=== PATIENT | female | born 1945 | race Two or more races ===

== ENCOUNTER 2017-12-05 08:27 | Emergency (ER) | payer MEDICARE, OTHER ==
[~2017-12-05] VITALS: Ht 170.2 cm; Wt 59.0 kg
[~2017-12-05 08:27] MED LIST: ASPI81CH PO; ASPI81EC PO; CYCL10 PO; DIPH50 PO; HYDACE5325 PO; HYDR1TAB94 PO; IBUP600 PO; MULVITMIND PO; Prilosec Otc20 MG PO; ROXICODONE5 MG PO; TETR.05OPS BOTHEYES
[2017-12-05 10:10] LABS: BASOPHILS ABSOLUTE AUTO 0.04 K/mm3 (0.00-0.23); BASOPHILS PERCENT AUTO 0 % (0-2); EOSINOPHILS PERCENT AUTO 1 % (0-6); Hemoglobin 12.6 g/dL (11.5-16.0); IMMATURE GRAN ABSOLUTE AUTO 0.18 K/mm3 (0.00-0.10); IMMATURE GRAN PERCENT AUTO 1 % (0-1); LYMPHOCYTES ABSOLUTE AUTO 1.01 K/mm3 (0.84-5.20); LYMPHOCYTES PERCENT AUTO 5 % (21-46); MONOCYTES ABSOLUTE AUTO 1.05 K/mm3 (0.16-1.47); MONOCYTES PERCENT AUTO 6 % (4-13); Mean Corpuscular HGB 31.6 pg (26.0-34.0); Mean Corpuscular HGB Conc 33.2 g/dL (31.5-36.5); Mean Corpuscular Volume 95 fL (80-100); Mean Platelet Volume 10.1 fL (9.1-12.4); NEUTROPHILS ABSOLUTE AUTO 16.84 K/mm3 (1.96-9.15); NEUTROPHILS PERCENT AUTO 88 % (41-73); Platelet Count 263 K/mm3 (150-400); RDW Coefficient Variation 13.3 % (11.7-14.2); RDW Standard Deviation 46.9 fL (35.1-46.3); Red Blood Cell Count 3.99 M/mm3 (3.80-5.20); White Blood Cell Count 19.22 K/mm3 (4.00-11.30)
[2017-12-05 10:27] LABS: Alanine Aminotransfer (ALT/SGP 39 U/L (12-78); Albumin, Blood 3.3 g/dL (3.4-5.0); Albumin/Globulin Ratio 0.9 (0.8-1.8); Alk Phos 72 U/L (50-136); Anion Gap 8 mmol/L (6-16); Aspartate Aminotrans (AST/SGOT 47 U/L (12-37); Bilirubin, Total 0.2 mg/dL (0.1-1.0); Blood Urea Nitrogen 15 mg/dL (8-24); Bun/Creatinine Ratio 19.8 (12.0-20.0); CO2, Blood 27 mmol/L (21-32); Calcium, Blood 8.3 mg/dL (8.5-10.1); Chloride, Blood 107 mmol/L (98-108); Creatinine, Blood 0.76 mg/dL (0.40-1.00); Globulin, Blood 3.6 g/dL (2.2-4.0); Glomerular Filtration Rate >60 (60-); Glucose, Blood 82 mg/dL (70-99); Potassium, Blood 4.2 mmol/L (3.5-5.5); Sodium, Blood 142 mmol/L (136-145); Total Protein, Blood 6.9 g/dL (6.4-8.2)
[2017-12-05 10:29] LABS: International Normalized Ratio 0.96
== END 2017-12-05 12:00 | disposition home or self-care (01) ==
LOC: ER 08:27
PROVIDERS: Internal Medicine
DX: R10.816 Epigastric abdominal tenderness (principal)
CPT/HCPCS: 80053; 85025; 85610; 96360; 99283; J7030

== ENCOUNTER 2017-12-13 15:24 | Emergency (ER) | payer MEDICARE ==
[~2017-12-13] VITALS: Ht 172.7 cm; Wt 56.7 kg
[2017-12-13 15:47] LABS: BASOPHILS ABSOLUTE AUTO 0.03 K/mm3 (0.00-0.23); BASOPHILS PERCENT AUTO 1 % (0-2); EOSINOPHILS ABSOLUTE AUTO 0.17 K/mm3 (0.00-0.68); EOSINOPHILS PERCENT AUTO 3 % (0-6); Hemoglobin 13.7 g/dL (11.5-16.0); IMMATURE GRAN ABSOLUTE AUTO 0.01 K/mm3 (0.00-0.10); IMMATURE GRAN PERCENT AUTO 0 % (0-1); LYMPHOCYTES ABSOLUTE AUTO 1.28 K/mm3 (0.84-5.20); LYMPHOCYTES PERCENT AUTO 26 % (21-46); MONOCYTES ABSOLUTE AUTO 0.38 K/mm3 (0.16-1.47); MONOCYTES PERCENT AUTO 8 % (4-13); Mean Corpuscular HGB 31.1 pg (26.0-34.0); Mean Corpuscular HGB Conc 34.3 g/dL (31.5-36.5); Mean Platelet Volume 9.9 fL (9.1-12.4); NEUTROPHILS ABSOLUTE AUTO 3.14 K/mm3 (1.96-9.15); NEUTROPHILS PERCENT AUTO 63 % (41-73); Platelet Count 261 K/mm3 (150-400); RDW Coefficient Variation 13.3 % (11.7-14.2); Red Blood Cell Count 4.41 M/mm3 (3.80-5.20); White Blood Cell Count 5.01 K/mm3 (4.00-11.30)
[2017-12-13 15:50] LABS: Mean Corpuscular Volume 91 fL (80-100)
[2017-12-13 16:04] LABS: Alanine Aminotransfer (ALT/SGP 25 U/L (12-78); Albumin, Blood 3.6 g/dL (3.4-5.0); Albumin/Globulin Ratio 0.8 (0.8-1.8); Alk Phos 66 U/L (50-136); Anion Gap 8 mmol/L (6-16); Aspartate Aminotrans (AST/SGOT 24 U/L (12-37); Bilirubin, Total 0.4 mg/dL (0.1-1.0); Blood Urea Nitrogen 12 mg/dL (8-24); Bun/Creatinine Ratio 19.5 (12.0-20.0); CO2, Blood 22 mmol/L (21-32); Calcium, Blood 9.3 mg/dL (8.5-10.1); Chloride, Blood 106 mmol/L (98-108); Creatinine, Blood 0.61 mg/dL (0.40-1.00); Globulin, Blood 4.3 g/dL (2.2-4.0); Glomerular Filtration Rate >60 (60-); Glucose, Blood 126 mg/dL (70-99); Sodium, Blood 136 mmol/L (136-145); Total Protein, Blood 7.9 g/dL (6.4-8.2)
[2017-12-13 18:32] LABS: Source, Urine Clean Catch
[2017-12-13 18:33] LABS: Bilirubin, Urine Neg (Neg); Blood, Urine 2+ (Neg); Glucose Qualitative, Urine Neg (Neg); Ketones, Urine Neg (Neg); Leukocyte Esterase, Urine 1+ (Neg); Nitrite, Urine Neg (Neg); Protein, Urine Neg (Neg); Specific Gravity, Urine 1.015 (1.003-1.022); Urobilinogen, Urine NORM (Normal)
[2017-12-13 18:41] LABS: Color, Urine Yellow (P-Yellow)
[2017-12-13 18:42] LABS: Appearance, Urine Clear (Clear)
[2017-12-13 18:43] LABS: Bacteria Not Seen /hpf; Red Blood Cells, Urine Not Seen /hpf (0-2); Squamous Epithelial Cells Few /hpf (Few); White Blood Cells, Urine Not Seen /hpf (0-5)
== END 2017-12-13 18:45 | disposition left against medical advice (07) ==
LOC: ER 15:24
PROVIDERS: Emergency Medicine
DX: R10.2 Pelvic and perineal pain (principal); F17.210 Nicotine dependence, cigarettes, uncomplicated
CPT/HCPCS: 36415; 80053; 81001; 83690; 85025; 87086; 96374; 96375; 99283; J1200; J1885; J2765

== ENCOUNTER 2020-01-04 10:41 | Day surgery (SDC) | payer MEDICARE, OTHER ==
[~2020-01-04 10:41] MED LIST changes: +ALBU90OI INH; +CENTRUM SILVER1 EAC2 PO
== END 2020-01-04 23:01 | disposition home or self-care (01) ==
LOC: US 10:41
DX: D11.9 Benign neoplasm of major salivary gland, unspecified (principal)
CPT/HCPCS: 20206; 76942; 88305

== ENCOUNTER 2021-11-24 15:44 | Emergency (ER) | payer MEDICARE, OTHER ==
[~2021-11-24] VITALS: Ht 172.7 cm; Wt 58.1 kg
[~2021-11-24 15:44] MED LIST changes: +NALOXONE H0.4 MG/1 M IM
[2021-11-24 16:39] LABS: BASOPHILS ABSOLUTE AUTO 0.04 K/mm3 (0.00-0.23); BASOPHILS PERCENT AUTO 0 % (0-2); EOSINOPHILS ABSOLUTE AUTO 0.04 K/mm3 (0.00-0.68); EOSINOPHILS PERCENT AUTO 0 % (0-6); Hematocrit 38.6 % (33.0-51.0); Hemoglobin 12.8 g/dL (11.5-16.0); IMMATURE GRAN ABSOLUTE AUTO 0.12 K/mm3 (0.00-0.10); IMMATURE GRAN PERCENT AUTO 1 % (0-1); LYMPHOCYTES ABSOLUTE AUTO 0.64 K/mm3 (0.84-5.20); LYMPHOCYTES PERCENT AUTO 3 % (21-46); MONOCYTES ABSOLUTE AUTO 0.92 K/mm3 (0.16-1.47); MONOCYTES PERCENT AUTO 5 % (4-13); Mean Corpuscular HGB 29.8 pg (26.0-34.0); Mean Corpuscular HGB Conc 33.2 g/dL (31.5-36.5); Mean Corpuscular Volume 90 fL (80-100); Mean Platelet Volume 10.7 fL (9.1-12.4); NEUTROPHILS ABSOLUTE AUTO 17.74 K/mm3 (1.96-9.15); NEUTROPHILS PERCENT AUTO 91 % (41-73); Platelet Count 246 K/mm3 (150-400); RDW Coefficient Variation 13.6 % (11.7-14.2); RDW Standard Deviation 44.9 fL (35.1-46.3); Red Blood Cell Count 4.29 M/mm3 (3.80-5.20)
[2021-11-24 17:11] LABS: Alanine Aminotransfer (ALT/SGP 25 U/L (12-78); Albumin, Blood 3.2 g/dL (3.4-5.0); Albumin/Globulin Ratio 0.8 (0.8-1.8); Alk Phos 93 U/L (50-136); Anion Gap 10 mmol/L (6-16); Aspartate Aminotrans (AST/SGOT 34 U/L (12-37); Bilirubin, Total 0.4 mg/dL (0.1-1.0); Blood Urea Nitrogen 13 mg/dL (8-24); Bun/Creatinine Ratio 17.5 (12.0-20.0); CO2, Blood 22 mmol/L (21-32); Calcium, Blood 8.4 mg/dL (8.5-10.1); Chloride, Blood 102 mmol/L (98-108); Creatinine, Blood 0.74 mg/dL (0.40-1.00); Globulin, Blood 4.2 g/dL (2.2-4.0); Glomerular Filtration Rate >60 (60-); Glucose, Blood 338 mg/dL (70-99); Potassium, Blood 3.9 mmol/L (3.5-5.5); Sodium, Blood 134 mmol/L (136-145); Total Protein, Blood 7.4 g/dL (6.4-8.2)
[2021-11-24 18:04] LABS: Source, Urine Clean Catch
[2021-11-24 18:18] LABS: Appearance, Urine Hazy (Clear); Bilirubin, Urine Neg (Neg); Blood, Urine 4+ (Neg); Glucose Qualitative, Urine 4+ (Neg); Ketones, Urine Neg (Neg); Leukocyte Esterase, Urine 2+ (Neg); Nitrite, Urine Neg (Neg); Protein, Urine 3+ (Neg); Specific Gravity, Urine 1.015 (1.003-1.022); Urobilinogen, Urine NORM (Normal)
[2021-11-24 18:26] LABS: Color, Urine Pale Yellow (P-Yellow)
[2021-11-24 18:29] LABS: Amorphous Light (0-Heavy)
[2021-11-24 18:30] LABS: Bacteria Many /hpf; Red Blood Cells, Urine 0-2 /hpf (0-2); Squamous Epithelial Cells Mod /hpf (Few)
[2021-11-24 18:31] LABS: Hyaline Casts 0-2 /lpf (0-2); U Amphetamine Screen Not Detected; U Barbituate Screen Not Detected; U Benzodiazapine Screen Not Detected; U Buprenorphine Screen Not Detected; U Cannabinoids Screen Not Detected; U Cocaine Screen Not Detected; U Methadone Screen Not Detected; U Methamphetamine Screen Not Detected; U Opiates Screen DETECTED; U Oxycodone Screen Not Detected; U Phencyclidine Screen Not Detected; U Propoxyphene Screen Not Detected
[2021-11-24] MEDS ORDERED: NARCAN4 M1 (18:55)
== END 2021-11-24 20:00 | disposition home or self-care (01) ==
LOC: ER 15:44
PROVIDERS: Physician Assistant
DX: T40.1X1A Poisoning by heroin, accidental (unintentional), initial encounter (principal); F17.210 Nicotine dependence, cigarettes, uncomplicated; Z91.013 Allergy to seafood; Z91.048 Other nonmedicinal substance allergy status; Z79.899 Other long term (current) drug therapy
CPT/HCPCS: 80053; 81001; 85025; 87086; 99284

== ENCOUNTER → 2022-01-08 | Outpatient (CLI) | payer MEDICARE, OTHER ==
[~2022-01-08] MED LIST changes: +NARCAN4 M1
[2022-01-08 15:34] LABS: Appearance, Urine Clear (Clear); Bilirubin, Urine Neg (Neg); Blood, Urine 2+ (Neg); Glucose Qualitative, Urine Neg (Neg); Ketones, Urine Neg (Neg); Leukocyte Esterase, Urine Neg (Neg); Nitrite, Urine Neg (Neg); Protein, Urine Neg (Neg); Urobilinogen, Urine NORM (Normal)
[2022-01-08 15:40] LABS: Color, Urine Pale Yellow (P-Yellow)
[2022-01-08 15:43] LABS: Bacteria Few /hpf; Squamous Epithelial Cells Few /hpf (Few); White Blood Cells, Urine 0-2 /hpf (0-5)
== END | disposition home or self-care (01) ==
LOC: LAB SHORT 12:00
PROVIDERS: Family Medicine
DX: R31.9 Hematuria, unspecified (principal)
CPT/HCPCS: 81001; 87086

== ENCOUNTER → 2022-04-09 | Outpatient (CLI) | payer MEDICARE, OTHER | END | disposition home or self-care (01) | LOC: LAB SHORT 11:40 | DX: Z09 Encounter for follow-up examination after completed treatment for conditions other than malignant neoplasm (principal); Z86.11 Personal history of tuberculosis | CPT/HCPCS: 88108; 88312 ==

== ENCOUNTER → 2024-01-26 | Outpatient (CLI) | payer OTHER ==
[~2024-01-26] MED LIST changes: +Bentyl10 MG PO
[2024-01-28 12:13] LABS: CALPROTECTIN,FECAL 71 ug/g (<=49)
== END ==
LOC: LAB SHORT 09:44 → LAB 09:44
PROVIDERS: Family Medicine
DX: R10.9 Unspecified abdominal pain (principal); R19.5 Other fecal abnormalities
CPT/HCPCS: 83993

== ENCOUNTER → 2024-09-07 | Outpatient (CLI) | payer OTHER ==
[2024-09-07 16:13] LABS: Hematocrit 38.3 % (33.0-51.0); Mean Corpuscular HGB 30.4 pg (26.0-34.0); Mean Corpuscular HGB Conc 36.6 g/dL (31.5-36.5); Mean Corpuscular Volume 83 fL (80-100); Mean Platelet Volume 11.4 fL (9.1-12.4); Platelet Count 368 K/mm3 (150-400); RDW Coefficient Variation 13.3 % (11.7-14.2); RDW Standard Deviation 40.2 fL (35.1-46.3); White Blood Cell Count 13.41 K/mm3 (4.00-11.30)
[2024-09-07 16:23] LABS: Albumin, Blood 3.6 g/dL (3.4-5.0); Albumin/Globulin Ratio 0.9 (0.8-1.8); Bilirubin, Direct 0.1 mg/dL (0.0-0.3); Bilirubin, Indirect 0.3 mg/dL (0.1-0.7); Bilirubin, Total 0.4 mg/dL (0.1-1.0); Calcium, Blood 9.2 mg/dL (8.5-10.1); Creatinine, Blood 3.22 mg/dL (0.40-1.00); Globulin, Blood 4.2 g/dL (2.2-4.0); Potassium, Blood 3.7 mmol/L (3.5-5.5); Total Protein, Blood 7.8 g/dL (6.4-8.2)
[2024-09-07 16:51] LABS: BAND PERCENT MAN 8 % (0-8); BASOPHILS PERCENT MAN 0 % (0-2); EOSINOPHILS PERCENT MAN 0 % (0-6); LYMPHOCYTES ABSOLUTE MAN 0.93 K/mm3 (0.84-5.20); LYMPHOCYTES PERCENT MAN 7 % (21-46); MONOCYTES ABSOLUTE MAN 1.07 K/mm3 (0.16-1.47); MONOCYTES PERCENT MAN 8 % (4-13); NEUTROPHILS ABSOLUTE MAN 11.39 K/mm3 (1.96-9.15); SEG NEUTROPHILS PERCENT MAN 77 % (41-73); TOTAL CELLS COUNTED 100
== END | disposition home or self-care (01) ==
LOC: LAB SHORT 14:49 → LAB 14:49
PROVIDERS: Nurse Practitioner
DX: E86.0 Dehydration (principal); R10.11 Right upper quadrant pain; R11.2 Nausea with vomiting, unspecified
CPT/HCPCS: 80053; 82248; 83690; 85007; 85027

== ENCOUNTER 2025-04-11 15:48 | Emergency (ER) | payer OTHER ==
[~2025-04-11] VITALS: Ht 170.2 cm; Wt 49.9 kg
[2025-04-11] MEDS ORDERED: Ipratropium Bromide INH 0.02% 0.5 mg/2.5ML Vial INH SCH (16:00)
[2025-04-11] MEDS ORDERED: Albuterol 2.5 MG/3 ML VIAL INH SCH (16:00)
[2025-04-11 17:00] LABS: BASOPHILS ABSOLUTE AUTO 0.03 K/mm3 (0.00-0.23); BASOPHILS PERCENT AUTO 0 % (0-2); EOSINOPHILS ABSOLUTE AUTO 0.62 K/mm3 (0.00-0.68); EOSINOPHILS PERCENT AUTO 8 % (0-6); Hematocrit 35.0 % (33.0-51.0); Hemoglobin 11.4 g/dL (11.5-16.0); IMMATURE GRAN ABSOLUTE AUTO 0.01 K/mm3 (0.00-0.10); IMMATURE GRAN PERCENT AUTO 0 % (0-1); LYMPHOCYTES ABSOLUTE AUTO 1.51 K/mm3 (0.84-5.20); LYMPHOCYTES PERCENT AUTO 19 % (21-46); MONOCYTES ABSOLUTE AUTO 0.71 K/mm3 (0.16-1.47); MONOCYTES PERCENT AUTO 9 % (4-13); Mean Corpuscular HGB Conc 32.6 g/dL (31.5-36.5); Mean Corpuscular Volume 95 fL (80-100); NEUTROPHILS ABSOLUTE AUTO 5.10 K/mm3 (1.96-9.15); NEUTROPHILS PERCENT AUTO 64 % (41-73); NRBC ABSOLUTE 0.00 K/mm3 (0.00-0.02); NRBC Auto 0.0 /100 WBC (0.0-0.2); Platelet Count 311 K/mm3 (150-400); RDW Coefficient Variation 14.3 % (11.7-14.2); RDW Standard Deviation 49.6 fL (35.1-46.3)
[2025-04-11 17:07] LABS: Alanine Aminotransfer (ALT/SGP 20.0 U/L (12-78); Albumin, Blood 3.6 g/dL (3.4-5.0); Albumin/Globulin Ratio 1.0 (0.8-1.8); Anion Gap 5.0 mmol/L (3-11); Aspartate Aminotrans (AST/SGOT 22.0 U/L (12-37); Bilirubin, Total 0.3 mg/dL (0.1-1.0); Blood Urea Nitrogen 17.0 mg/dL (8-24); CO2, Blood 34.0 mmol/L (21-32); Calcium, Blood 9.0 mg/dL (8.5-10.1); Chloride, Blood 98.0 mmol/L (98-108); Creatinine, Blood 0.75 mg/dL (0.40-1.00); Globulin, Blood 3.6 g/dL (2.2-4.0); Glucose, Blood 120.0 mg/dL (70-99); Potassium, Blood 4.8 mmol/L (3.5-5.5); Sodium, Blood 132.0 mmol/L (136-145); Total Protein, Blood 7.2 g/dL (6.4-8.2)
[2025-04-11 20:30] VITALS: BP 133/75
[2025-04-11] MEDS ORDERED: AZIT250 PO (20:53)
[2025-04-11] MEDS ORDERED: PRED20 PO (20:53)
== END 2025-04-11 21:03 | disposition home or self-care (01) ==
LOC: ER 15:48
PROVIDERS: Physician Assistant
DX: J44.1 Chronic obstructive pulmonary disease with (acute) exacerbation (principal); F17.210 Nicotine dependence, cigarettes, uncomplicated; Z91.013 Allergy to seafood; Z91.041 Radiographic dye allergy status; Z59.89 Other problems related to housing and economic circumstances
CPT/HCPCS: 71046; 80053; 85025; 93005; 93010; 96374; 99285-25; J2919

== ENCOUNTER 2025-04-17 14:58 | Observation (INO) | payer OTHER ==
[~2025-04-17] VITALS: Ht 170.2 cm; Wt 49.9 kg
[~2025-04-17 14:58] MED LIST changes: +AZIT250 PO; +PRED20 PO
[2025-04-17 16:06] LABS: BASOPHILS ABSOLUTE AUTO 0.03 K/mm3 (0.00-0.23); BASOPHILS PERCENT AUTO 0 % (0-2); EOSINOPHILS ABSOLUTE AUTO 0.01 K/mm3 (0.00-0.68); EOSINOPHILS PERCENT AUTO 0 % (0-6); Hematocrit 36.9 % (33.0-51.0); Hemoglobin 12.3 g/dL (11.5-16.0); IMMATURE GRAN ABSOLUTE AUTO 0.04 K/mm3 (0.00-0.10); IMMATURE GRAN PERCENT AUTO 0 % (0-1); LYMPHOCYTES ABSOLUTE AUTO 0.75 K/mm3 (0.84-5.20); LYMPHOCYTES PERCENT AUTO 8 % (21-46); MONOCYTES ABSOLUTE AUTO 0.31 K/mm3 (0.16-1.47); MONOCYTES PERCENT AUTO 3 % (4-13); Mean Corpuscular HGB Conc 33.3 g/dL (31.5-36.5); Mean Corpuscular Volume 91 fL (80-100); NEUTROPHILS ABSOLUTE AUTO 8.61 K/mm3 (1.96-9.15); NEUTROPHILS PERCENT AUTO 88 % (41-73); NRBC ABSOLUTE 0.00 K/mm3 (0.00-0.02); NRBC Auto 0.0 /100 WBC (0.0-0.2); Platelet Count 266 K/mm3 (150-400); RDW Coefficient Variation 14.1 % (11.7-14.2); RDW Standard Deviation 47.8 fL (35.1-46.3)
[2025-04-17] MEDS ORDERED: Ipratropium/Albuterol SulF 2.5-0.5MG/3 ML Amp INH ONE (16:15)
[2025-04-17 16:24] LABS: Alanine Aminotransfer (ALT/SGP 27.0 U/L (12-78); Albumin, Blood 3.5 g/dL (3.4-5.0); Albumin/Globulin Ratio 0.9 (0.8-1.8); Anion Gap 7.0 mmol/L (3-11); Aspartate Aminotrans (AST/SGOT 24.0 U/L (12-37); Bilirubin, Total 0.4 mg/dL (0.1-1.0); Blood Urea Nitrogen 16.0 mg/dL (8-24); CO2, Blood 30.0 mmol/L (21-32); Calcium, Blood 8.7 mg/dL (8.5-10.1); Chloride, Blood 99.0 mmol/L (98-108); Creatinine, Blood 0.71 mg/dL (0.40-1.00); Globulin, Blood 3.8 g/dL (2.2-4.0); Glucose, Blood 124.0 mg/dL (70-99); Magnesium, Blood 1.8 mg/dL (1.6-2.4); Potassium, Blood 3.7 mmol/L (3.5-5.5); Sodium, Blood 132.0 mmol/L (136-145); Total Protein, Blood 7.3 g/dL (6.4-8.2)
[2025-04-17 16:31] LABS: Source, Urine Clean Catch
[2025-04-17 16:39] LABS: Bilirubin, Urine Neg (Neg); Glucose Qualitative, Urine Neg (Neg); Ketones, Urine Neg (Neg); Leukocyte Esterase, Urine Neg (Neg); Protein, Urine Neg (Neg); Specific Gravity, Urine 1.010 (1.003-1.022); Urobilinogen, Urine NORM (Normal)
[2025-04-17 16:47] LABS: Color, Urine Pale Yellow (P-Yellow)
[2025-04-17 17:23] LABS: Influenza A, PCR NEGATIVE (NEGATIVE); Influenza B, PCR NEGATIVE (NEGATIVE); Resp Syncytial Virus, PCR NEGATIVE (NEGATIVE); SARS-Cov-2 (COVID-19) PCR, MMC NEGATIVE (NEGATIVE)
[2025-04-17] MEDS ORDERED: CefTRIAXone Sodium 1,000 MG in NS 100 ML IV ONE (19:35)
[2025-04-17] MEDS ORDERED: Doxycycline Hyclate 100 MG in Dextrose 5% 250 ML IV ONE (19:35)
[2025-04-17] MEDS ORDERED: Ondansetron HCl 2 MG / ML 2ML Vial IV PRN (22:45)
[2025-04-17] MEDS ORDERED: NS 1,000 ML IV ONE ×2 (22:45→23:29)
[2025-04-17] MEDS ORDERED: FLU VACC TS2025-26(6MOS UP)/PF 45 MCG/0.5 ML SYRINGE IM ONE (22:50)
[2025-04-17] MEDS ORDERED: Ipratropium/Albuterol SulF 2.5-0.5MG/3 ML Amp INH PRN (22:50)
[2025-04-17] MEDS ORDERED: FentaNYL Citrate 50 MCG/ML 2 ML Injection IV PRN (22:50)
[2025-04-17] MEDS ORDERED: Enoxaparin 40 MG/0.4 ML SYR SC SCH (23:00)
[2025-04-18] MEDS ORDERED: LORazepam 2 MG/ML 1ML Injection IV ONE (02:30)
[2025-04-18 02:38] LABS: Alanine Aminotransfer (ALT/SGP 24.0 U/L (12-78); Albumin, Blood 3.4 g/dL (3.4-5.0); Albumin/Globulin Ratio 1.0 (0.8-1.8); Anion Gap 11.0 mmol/L (3-11); Aspartate Aminotrans (AST/SGOT 15.0 U/L (12-37); Bilirubin, Total 0.4 mg/dL (0.1-1.0); Blood Urea Nitrogen 18.0 mg/dL (8-24); CO2, Blood 27.0 mmol/L (21-32); Calcium, Blood 8.7 mg/dL (8.5-10.1); Chloride, Blood 101.0 mmol/L (98-108); Creatinine, Blood 0.59 mg/dL (0.40-1.00); Globulin, Blood 3.5 g/dL (2.2-4.0); Glucose, Blood 136.0 mg/dL (70-99); Potassium, Blood 3.6 mmol/L (3.5-5.5); Sodium, Blood 135.0 mmol/L (136-145); Total Protein, Blood 6.9 g/dL (6.4-8.2)
[2025-04-18 08:25] VITALS: BP 166/90
[2025-04-18] MEDS ORDERED: PRED20 PO (08:47)
== END 2025-04-18 10:02 | disposition home or self-care (01) ==
LOC: ER 14:58 → MEDS 14:59 → ER 14:59 → ERHOLD 14:59
PROVIDERS: Emergency Medicine; ADMIT Internal Medicine
DX: J44.1 Chronic obstructive pulmonary disease with (acute) exacerbation (principal); J96.01 Acute respiratory failure with hypoxia; K52.9 Noninfective gastroenteritis and colitis, unspecified; R79.89 Other specified abnormal findings of blood chemistry; F17.210 Nicotine dependence, cigarettes, uncomplicated; Z91.013 Allergy to seafood; Z79.52 Long term (current) use of systemic steroids; Z79.899 Other long term (current) drug therapy; Z88.8 Allergy status to other drugs, medicaments and biological substances
CPT/HCPCS: 71045; 74176; 80053; 81003; 83690; 83735; 83880; 84100; 84484; 85025; 87637; 93005; 93010; 96361; 96365; 96366; 96367; 96375; 99285-25; A9270; G0378; J0696; J2060; J2919; J3010; J7030; J7060

== ENCOUNTER → 2025-05-22 | Outpatient (CLI) | payer OTHER ==
[2025-05-22 19:41] LABS: BASOPHILS ABSOLUTE AUTO 0.05 K/mm3 (0.00-0.23); BASOPHILS PERCENT AUTO 1 % (0-2); EOSINOPHILS ABSOLUTE AUTO 0.67 K/mm3 (0.00-0.68); EOSINOPHILS PERCENT AUTO 9 % (0-6); Hematocrit 42.4 % (33.0-51.0); Hemoglobin 14.3 g/dL (11.5-16.0); IMMATURE GRAN ABSOLUTE AUTO 0.02 K/mm3 (0.00-0.10); IMMATURE GRAN PERCENT AUTO 0 % (0-1); LYMPHOCYTES ABSOLUTE AUTO 2.00 K/mm3 (0.84-5.20); LYMPHOCYTES PERCENT AUTO 26 % (21-46); MONOCYTES ABSOLUTE AUTO 0.68 K/mm3 (0.16-1.47); MONOCYTES PERCENT AUTO 9 % (4-13); Mean Corpuscular HGB Conc 33.7 g/dL (31.5-36.5); Mean Corpuscular Volume 91 fL (80-100); NEUTROPHILS ABSOLUTE AUTO 4.39 K/mm3 (1.96-9.15); NEUTROPHILS PERCENT AUTO 56 % (41-73); NRBC ABSOLUTE 0.00 K/mm3 (0.00-0.02); NRBC Auto 0.0 /100 WBC (0.0-0.2); Platelet Count 303 K/mm3 (150-400); RDW Coefficient Variation 14.6 % (11.7-14.2); RDW Standard Deviation 48.6 fL (35.1-46.3)
[2025-05-22 20:11] LABS: Alanine Aminotransfer (ALT/SGP 239 U/L (12-78); Albumin, Blood 3.9 g/dL (3.4-5.0); Albumin/Globulin Ratio 1.2 (0.8-1.8); Anion Gap 10 mmol/L (3-11); Aspartate Aminotrans (AST/SGOT 106 U/L (12-37); Bilirubin, Total 0.5 mg/dL (0.1-1.0); Blood Urea Nitrogen 15 mg/dL (8-24); C-REACTIVE PROTEIN, EXT RANGE <0.290 mg/dL (0.000-0.300); CO2, Blood 25 mmol/L (21-32); Calcium, Blood 9.1 mg/dL (8.5-10.1); Chloride, Blood 106 mmol/L (98-108); Creatinine, Blood 0.62 mg/dL (0.40-1.00); Globulin, Blood 3.3 g/dL (2.2-4.0); Glucose, Blood 88 mg/dL (70-99); Magnesium, Blood 2.1 mg/dL (1.6-2.4); Phosphorus, Blood 3.4 mg/dL (2.5-4.9); Potassium, Blood 3.8 mmol/L (3.5-5.5); Sodium, Blood 137 mmol/L (136-145); Thyroid Stimulating Hormone 1.530 uIU/mL (0.360-4.800); Total Protein, Blood 7.2 g/dL (6.4-8.2)
[2025-05-22 20:35] LABS: Creatinine, Urine Random 87.4 mg/dL (27.00-270.00); Microalb/Creat Ratio UR, Rand 16.819 mg/g (0.000-30.000); Microalbumin, Random Urine 14.7 mg/L (0.000-20.000)
[2025-05-25 17:00] LABS: Ferritin, Serum 83.0 ng/mL (8-252); Total Iron Binding Capacity 390.0 ug/dL (250-450)
== END ==
LOC: LAB 16:10 → LAB SHORT 16:10
PROVIDERS: General Practice
DX: R63.4 Abnormal weight loss (principal); R53.82 Chronic fatigue, unspecified; R73.03 Prediabetes
CPT/HCPCS: 80053; 82043; 82570; 82607; 82728; 82746; 83036; 83540; 83550; 83735; 84100; 84439; 84443; 84481; 85025; 85651; 86140

== ENCOUNTER 2025-06-07 16:38 | Inpatient (IN) | payer OTHER ==
[~2025-06-07] VITALS: Ht 165.1 cm; Wt 62.1 kg
[2025-06-07] VITALS (12 sets, daily range): BP systolic 83–144; BP diastolic 42–59
[2025-06-07 17:04] LABS: pH Blood Venous 7.23 (7.34-7.37)
[2025-06-07 17:12] LABS: BASOPHILS ABSOLUTE AUTO 0.07 K/mm3 (0.00-0.23); BASOPHILS PERCENT AUTO 1 % (0-2); EOSINOPHILS ABSOLUTE AUTO 1.17 K/mm3 (0.00-0.68); EOSINOPHILS PERCENT AUTO 12 % (0-6); Hematocrit 38.2 % (33.0-51.0); Hemoglobin 12.2 g/dL (11.5-16.0); IMMATURE GRAN ABSOLUTE AUTO 0.04 K/mm3 (0.00-0.10); IMMATURE GRAN PERCENT AUTO 0 % (0-1); LYMPHOCYTES ABSOLUTE AUTO 2.97 K/mm3 (0.84-5.20); LYMPHOCYTES PERCENT AUTO 30 % (21-46); MONOCYTES ABSOLUTE AUTO 0.98 K/mm3 (0.16-1.47); MONOCYTES PERCENT AUTO 10 % (4-13); Mean Corpuscular HGB Conc 31.9 g/dL (31.5-36.5); Mean Corpuscular Volume 93 fL (80-100); NEUTROPHILS ABSOLUTE AUTO 4.63 K/mm3 (1.96-9.15); NEUTROPHILS PERCENT AUTO 47 % (41-73); NRBC ABSOLUTE 0.00 K/mm3 (0.00-0.02); NRBC Auto 0.0 /100 WBC (0.0-0.2); Platelet Count 283 K/mm3 (150-400); RDW Coefficient Variation 14.1 % (11.7-14.2); RDW Standard Deviation 48.0 fL (35.1-46.3)
[2025-06-07] MEDS ORDERED: FentaNYL Citrate 50 MCG/ML 2 ML Injection IV ONE (17:15)
[2025-06-07 17:35] LABS: Alanine Aminotransfer (ALT/SGP 156 U/L (12-78); Albumin, Blood 3.6 g/dL (3.4-5.0); Albumin/Globulin Ratio 1.1 (0.8-1.8); Anion Gap 11 mmol/L (3-11); Aspartate Aminotrans (AST/SGOT 114 U/L (12-37); Bilirubin, Total 0.7 mg/dL (0.1-1.0); Blood Urea Nitrogen 20 mg/dL (8-24); CO2, Blood 28 mmol/L (21-32); Calcium, Blood 8.5 mg/dL (8.5-10.1); Chloride, Blood 97 mmol/L (98-108); Creatinine, Blood 0.78 mg/dL (0.40-1.00); Ethanol (Alcohol), Blood, Med <3 mg/dL; Globulin, Blood 3.4 g/dL (2.2-4.0); Glucose, Blood 188 mg/dL (70-99); Potassium, Blood 4.3 mmol/L (3.5-5.5); Sodium, Blood 132 mmol/L (136-145); Total Protein, Blood 7.0 g/dL (6.4-8.2)
[2025-06-07 17:38] LABS: U Amphetamine Screen Not Detected; U Barbiturate Screen Not Detected; U Benzodiazapine Screen Not Detected; U Buprenorphine Screen Not Detected; U Cannabinoids Screen Not Detected; U Cocaine Screen Not Detected; U Methadone Screen Not Detected; U Methamphetamine Screen Not Detected; U Opiates Screen Not Detected; U Oxycodone Screen Not Detected; U Phencyclidine Screen Not Detected
[2025-06-07] MEDS ORDERED: LORazepam 2 MG/ML 1ML Injection IV PRN (18:00)
[2025-06-07] MEDS ORDERED: FentaNYL Citrate 50 MCG/ML 2 ML Injection IV PRN ×2 (18:00→21:00)
[2025-06-07 18:21] LABS: pH Blood Venous 7.34 (7.34-7.37)
[2025-06-07] MEDS ORDERED: Ipratropium/Albuterol SulF 2.5-0.5MG/3 ML Amp INH SCH (18:50)
[2025-06-07] MEDS ORDERED: FLU VACC TS2025(65UP)/MF59C/PF 45 MCG/0.5 ML SYRINGE IM SCH (18:50)
[2025-06-07] MEDS ORDERED: Ondansetron HCl 2 MG / ML 2ML Vial IV PRN (18:50)
[2025-06-07] MEDS ORDERED: NS 1,000 ML IV SCH (18:55)
[2025-06-07] MEDS ORDERED: Albuterol 2.5 MG/3 ML VIAL INH PRN (18:55)
[2025-06-07] MEDS ORDERED: Albuterol 2.5 MG/3 ML VIAL INH ONE (19:00)
[2025-06-07 19:06] LABS: Influenza A, PCR NEGATIVE (NEGATIVE); Influenza B, PCR NEGATIVE (NEGATIVE); Resp Syncytial Virus, PCR NEGATIVE (NEGATIVE); SARS-Cov-2 (COVID-19) PCR, MMC NEGATIVE (NEGATIVE)
[2025-06-07] MEDS ORDERED: NS 1,000 ML IV ONE ×2 (19:07→20:00)
--- NOTE | 2025-06-07 19:43 | NUR ---
ADMIT RECEIVED FROM ER. PT IS INTUBATED- 7.0 ETT, 25CM AT LIP. AC/VC 16/375/5/50%. PROPOFOL AT 10MCG/KG/MIN. PT IS AWAKE AND ALERT. FOLLOWS DIRECTIONS. ATTEMPTS TO TALK/MOUTH WORDS AND POINTS AT THINGS IN AN ATTEMPT TO COMMUNICATE. BP WNL. MONITOR SHOWS NSR, RATE 80s. JENSEN PATENT AND DRAINING TO GRAVITY, YELLOW URINE. NS INFUSING WIDE OPEN AT THIS TIME. LACERATION NOTED TO BRIDGE OF NOSE AND BRUISING NOTED AROUND EYES. SEE ADMIT ASSESSMENT FOR FULL ASSESSMENT.
[2025-06-07] MEDS ORDERED: Cetylpyridinium Chloride 1 EA MISC MT SCH (20:00)
[2025-06-08] VITALS (84 sets, daily range): BP systolic 80–149; BP diastolic 45–76
[2025-06-08] MEDS ORDERED: Hydrogen Peroxide 1.5 % Solution MT SCH
[2025-06-08 03:06] LABS: pH Blood Venous 7.40 (7.34-7.37)
[2025-06-08 03:07] LABS: Hematocrit 34.4 % (33.0-51.0); Hemoglobin 11.3 g/dL (11.5-16.0); Mean Corpuscular HGB Conc 32.8 g/dL (31.5-36.5); Mean Corpuscular Volume 93 fL (80-100); NRBC ABSOLUTE 0.00 K/mm3 (0.00-0.02); NRBC Auto 0.0 /100 WBC (0.0-0.2); Platelet Count 202 K/mm3 (150-400); RDW Coefficient Variation 14.0 % (11.7-14.2); RDW Standard Deviation 47.7 fL (35.1-46.3)
[2025-06-08 03:48] LABS: Alanine Aminotransfer (ALT/SGP 131.0 U/L (12-78); Albumin, Blood 3.0 g/dL (3.4-5.0); Albumin/Globulin Ratio 1.0 (0.8-1.8); Anion Gap 11.0 mmol/L (3-11); Aspartate Aminotrans (AST/SGOT 85.0 U/L (12-37); Bilirubin, Total 0.4 mg/dL (0.1-1.0); Blood Urea Nitrogen 18.0 mg/dL (8-24); CO2, Blood 26.0 mmol/L (21-32); Calcium, Blood 8.2 mg/dL (8.5-10.1); Chloride, Blood 103.0 mmol/L (98-108); Creatinine, Blood 0.65 mg/dL (0.40-1.00); Globulin, Blood 3.0 g/dL (2.2-4.0); Glucose, Blood 147.0 mg/dL (70-99); Potassium, Blood 4.2 mmol/L (3.5-5.5); Sodium, Blood 136.0 mmol/L (136-145); Total Protein, Blood 6.0 g/dL (6.4-8.2)
[2025-06-08] MEDS ORDERED: NS 1,000 ML IV ONE (04:55)
--- NOTE | 2025-06-08 05:56 | NUR ---
SHIFT SUMMARY NO ACUTE CHANGES. REMAINS INTUBATED- AC/VC 16/375/5/30%. SEDATED WITH PROPOFOL BETWEEN 10-30MCG/KG/MIN- NOW INFUSING AT 30MCG/KG/MIN. PT OPENS EYES SPONTANEOUSLY. ATTEMPTS TO MOUTH WORDS AND WRITE ON CLIPBOARD. C/O PAIN IN THROAT FROM ETT- MEDICATED WITH FENTANYL 25MCG IV X 2 DOSES WITH GOOD RELIEF. MEDICATED WITH ATIVAN 0.5MG IV X 2 DOSES FOR SEDATION ADJUNCT. BILATERAL SOFT WRIST RESTRAINTS IN PLACE TO PREVENT SELF-EXTUBATION. MONITOR SHOWS NSR, RATE 70s-80s T/O SHIFT. HYPOTENSIVE AT TIMES. NS INFUSING AT 100MLS/HR. NS 1L BOLUS GIVEN X 1 FOR MAP <65. JENSEN PATENT AND DRAINING TO GRAVITY. WILL REPORT TO ONCOMING RN WHEN AVAILABLE.
--- NOTE | 2025-06-08 07:27 | NUR ---
PT BECAME VERY ANXIOUS WITH UNCONTROLLED COUGHING. RT TO BEDSIDE, PT WAS SUCTIONED, ATIVAN GIVEN, AND DR. NICKERSON CALLED. PER DR. NICKERSON, PT PLACED ON SPONTANEOUS AND SEDATION WAS PLACED ON SB. PT NOW APPEARS TO BE RESTING COMFORTABLY.
--- NOTE | 2025-06-08 07:50 | NUR ---
ASSUMED CARE OF PATIENT AT APPROXIMATELY 0700. REPORT RECEIVED FROM GOMEZ DURHAM. PT INTUBATED AND SEDATED, ON PROPOFOL. CONTINUOUS CARDIAC MONITORING IN PLACE. VENT SETTINGS A/C VC 14/375/5/30%. JENSEN PATENT. SCAB TO BRIDGE OF NOSE VISUALIZED, BILATERAL BLACK EYES, L WORSE THAN R. SEE SHIFT ASSESSMENT FOR FULL DETAILS.
[2025-06-08] MEDS ORDERED: Pantoprazole Sodium 40 MG Injection IV SCH (09:00)
[2025-06-08] MEDS ORDERED: Enoxaparin 40 MG/0.4 ML SYR SC SCH (09:00)
[2025-06-08] MEDS ORDERED: MULVITA PO (15:25)
--- NOTE | 2025-06-08 15:48 | NUR ---
UPPER DENTURES REMOVED FROM PT'S MOUTH, PLACED IN CUP c PATIENT LABEL IN HER ROOM ON COUNTER.
--- NOTE | 2025-06-08 17:03 | NUR ---
SHIFT SUMMARY SINCE EXTUBATION, PT HAS REMAINED ALERT AND ORIENTED X 4. ABLE TO FOLLOW COMMANDS, MAKE PURPOSEFUL MOVEMENTS, AND MAKE NEEDS KNOWN. TMAX 99.9 TEMP CURRENTLY 99.5, FAN UTILIZED. REPORTED PAIN IN HER STOMACH AT 4/10, HEATING PAD UTILIZED. CONTINUOUS CARDIAC MONITORING IN PLACE SHOWS SR, BP STABLE c MAP > 65. ALTERNATING BETWEEN RA AND 2-4 LPM O2 VIA NC c O2 SATURATION > 92%. THICK WHITE SECRETIONS, PT ENCOURAGED TO COUGH. NO PO INTAKE THIS SHIFT D/T PT SOMNOLENCE. NO BM THIS SHIFT. JENSEN PATENT AND DRAINING TO GRAVITY. ABRASION TO NOSE BRIDGE REMAINS UNCHANGED. PIV'S SALINE LOCKED. FAMILY AT BEDSIDE T/O SHIFT, SISTER WHO LIVES OUT OF STATE UPDATED ON PLAN OF CARE. WILL CONTINUE TO MONITOR AND REPORT TO ONCOMING RN.
--- NOTE | 2025-06-08 20:29 | NUR ---
ASSUMPTION OF CARE/ASSESSMENT: ASSUMED CARE OF PT AT 1900; BEDSIDE SHIFT REPORT FROM MARIAH DYER. PT SLEEPING BUT WAKES EASILY TO VERBAL STIMULI. PT IS A&O X 4, BUT UNABLE TO REMEMBER EVENTS LEADING UP TO ADMISSION. PT STATES THAT SHE DOES NOT USE A WHEELCHAIR AT HOME AND IS AMBULATORY. PT TRIALED ON WATER AND JELLO WITH NO PROBLEMS. PT CURRENTLY ON NC @ 2 LPM, WHEEZES TO L SIDE AND COARSE TO RIGHT SIDE; PT RECIEVED BREATHING TX. PT DENIES SOB, COUGH NON-PRODUCTIVE AND CONGESTED. PT SR ON MONITOR WITH HR 90'S, SBP 140'S AND DENIES CHEST PAIN/PRESSURE. ABD SOFT, NON-TENDER. JENSEN PATENT AND DRAINING TO GRAVITY. PIV TO LFA AND LWR THAT ARE PATENT AND SALINE LOCKED. BED LOWERED, CALL LIGHT IN REACH.
[2025-06-09] VITALS (34 sets, daily range): BP systolic 107–151; BP diastolic 49–77
[2025-06-09 03:14] LABS: pH Blood Venous 7.52 (7.34-7.37)
[2025-06-09 03:16] LABS: Hematocrit 31.6 % (33.0-51.0); Hemoglobin 10.8 g/dL (11.5-16.0); Mean Corpuscular HGB Conc 34.2 g/dL (31.5-36.5); Mean Corpuscular Volume 90 fL (80-100); NRBC ABSOLUTE 0.00 K/mm3 (0.00-0.02); NRBC Auto 0.0 /100 WBC (0.0-0.2); Platelet Count 208 K/mm3 (150-400); RDW Coefficient Variation 14.5 % (11.7-14.2); RDW Standard Deviation 46.7 fL (35.1-46.3)
[2025-06-09 03:36] LABS: Albumin, Blood 2.8 g/dL (3.4-5.0); Anion Gap 8 mmol/L (3-11); Blood Urea Nitrogen 15 mg/dL (8-24); CO2, Blood 26 mmol/L (21-32); Calcium, Blood 8.8 mg/dL (8.5-10.1); Chloride, Blood 109 mmol/L (98-108); Creatinine, Blood 0.60 mg/dL (0.40-1.00); Glucose, Blood 100 mg/dL (70-99); Magnesium, Blood 2.0 mg/dL (1.6-2.4); Phosphorus, Blood 2.2 mg/dL (2.5-4.9); Potassium, Blood 3.8 mmol/L (3.5-5.5); Sodium, Blood 139 mmol/L (136-145)
[2025-06-09] MEDS ORDERED: Potassium Phosphate Dibasic 10 MM in Dextrose 5% 250 ML IV ONE (05:30)
--- NOTE | 2025-06-09 05:59 | NUR ---
SHIFT SUMMARY: NO ACUTE CHANGES OVERNIGHT; VSS THROUGHOUT THE SHIFT. PT REMAINS ON NC 1-2 LPM; PRODUCTIVE COUGH WITH THICK, GREEN MUCUS. PT WHEEZY INTERMITTEN, RECIEVING PRN BREATHING TX WITH GOOD EFFECT. PT DENIES SOB. DYSPNEA ON EXERCTION BUT MAINTAINS SPO2. PT HELPING WITH REPOSITIONING, STRENGTH IMPROVING OVER SHIFT. PT UP TO BEDSIDE COMMODE TWICE, STEADY ON FEET. PT HAD ON BM THIS SHIFT. PT ABLE TO USE CALL LIGHT APPROPRIATELY. PT ADVANCED TO REGULAR DIET AND IS ABLE TO TOLERATE PO INTAKE THIS SHIFT. RECEIVING KPHOS THIS MORNING. BED LOWERED, CALL LIGHT IN REACH, WILL REPORT OFF TO ONCOMING RN.
--- NOTE | 2025-06-09 08:58 | NUR ---
DR LINCOLN AT BEDSIDE TO ROUND ON PT. ORDER GIVEN FOR STATUS CHANGE & PAIN MEDICATION.
--- NOTE | 2025-06-09 11:08 | NUR ---
MET WITH PT'S FAMILY YESTERDAY WHILE PT WAS STILL INTUBATED. THE EXPECTATION AT THAT TIME WAS FOR EXTUBATION, WHICH HAS NOW HAPPENED. PT EXPECTED TO MAKE HER OWN DECISIONS. PLAN TO MEET WITH THE PATIENT TODAY WHEN SHE'S AWAKE. APPEARS TO BE RESTING COMFORTABLY WITH EYES CLOSED AT THIS TIME.
--- NOTE | 2025-06-09 11:09 | NUR ---
Spiritual Care Visit. Pt. is awake in bed when she welcomes my visit. Pt. is pleasant. Facilitated a life review and considered matters of rosa and belief. Listen with empahty and interest. Pt. verbalized that she was feeling better and expects to be discharged home for the weekend. Prayed for the Pt. Pt. verbalized gratitude for the spiritual care visit.
[2025-06-09] MEDS ORDERED: TIZA4 PO (12:13)
[2025-06-09] MEDS ORDERED: OXYC5 PO (12:13)
[2025-06-09] MEDS ORDERED: ALBU2.5V5 (12:14)
[2025-06-09] MEDS ORDERED: Voltaren100 GM (12:15)
--- NOTE | 2025-06-09 18:13 | NUR ---
SHIFT SUMMARY S/P ACUTE RESP FAILURE. NO ACUTE CHANGES TODAY. A&O x3, NOT ORIENTED TO DATE S/P SYNCOPAL EVENT @ HOME. HR NSR 70s, MAP >65. SPO2 >91% ON RA. TOLERATING REGULAR DIET, DENIES N/V. PT REPORTS CHRONIC BACK PAIN & ACUTE FACE PAIN R/T FALL, MEDICATED PER EMAR c RELIEF. AMBULATES c NURSE/SBA R/T WEAKNESS. VOIDING, SMALL BMs & PASSING FLATUS. FAMILY CURRENTLY AT BEDSIDE. PT SITTING IN CHAIR, CALL LIGHT IN REACH, WILL REPORT TO DAY RN.
--- NOTE | 2025-06-09 20:01 | NUR ---
ASSUMPTION OF CARE: ASSUMED CARE AT START OF SHIFT (1899). REPORT RECEIVED FROM DAY SHIFT RN. PT IS DOING WELL AND SITTING IN CHAIR. PT'S FAMILY AT BESIDE VISITING WITH PT. PT IS ALERT AND FOLLOWING COMMANDS. PT STATES HAVING 6/10 BACK PAIN, BUT NO CP OR SOB AT THIS TIME. LUNG SOUNDS ARE CLEAR AND EQUAL BILATERALLY, ON RA WITH SPO2 >95%. SINUS RYTHM WITH SBP: 140'S MAP >65 HR: 80'S. IV: PERIPHERAL LAC AND L FOREARM. SKIN: BRUISING AROUND EYES FROM PREVIOUS FALL. PT ABLE TO STAND AND AMBULATE TO TOILET VIA 1-PERSON ASSIST. LINES AND CORDS PLACED OUT OF REACH. CALL LIGHT PLACED WITHIN REACH.
[2025-06-10 03:30] LABS: Anion Gap 7.0 mmol/L (3-11); Blood Urea Nitrogen 13.0 mg/dL (8-24); CO2, Blood 29.0 mmol/L (21-32); Calcium, Blood 8.5 mg/dL (8.5-10.1); Chloride, Blood 107.0 mmol/L (98-108); Creatinine, Blood 0.61 mg/dL (0.40-1.00); Glucose, Blood 105.0 mg/dL (70-99); Phosphorus, Blood 2.6 mg/dL (2.5-4.9); Potassium, Blood 3.3 mmol/L (3.5-5.5); Sodium, Blood 140.0 mmol/L (136-145)
[2025-06-10 04:12] VITALS: BP 143/71
--- NOTE | 2025-06-10 05:46 | NUR ---
SHIFT SUMMARY: PT IS DOING WELL AND RESTING IN BED. NO ACUTE CHANGES THROUGHOUT THE SHIFT. VITAL SIGNS REMAIN STABLE. PT STATED THEY WERE HAVING DIFFICULTY SLEEPING AND PT RECEIVED MELTONIN PER EMR ORDERS. PT ALSO CONTINUES TO HAVE BACK PAIN AND WAS GIVEN PAIN MEDS PER EMR ORDERS. PT ABLE TO AMBULATE TO BATHROOM VIA 1-PERSON ASSIST. LINES AND CORDS PLACED OUT OF REACH. CALL LIGHT PLACED WITHIN REACH. PT ABLE TO MAKES NEEDS KNOWN.
[2025-06-10] MEDS ORDERED: Ondansetron HCl 2 MG / ML 2ML Vial IV PRN (08:00)
[2025-06-10 08:17] VITALS: BP 161/82
[2025-06-10] MEDS ORDERED: PRED20 PO (08:53)
[2025-06-10] MEDS ORDERED: PANT20 PO (08:57)
[2025-06-10] MEDS ORDERED: ALBU90OI INH (08:57)
[2025-06-10] MEDS ORDERED: TIOT18 INH (09:01)
--- NOTE | 2025-06-10 11:40 | NUR ---
DISCHARGE SUMMARY S/P ACUTE RESP FAILURE. VSS, SPO2 >92% ON RA, PT DENIES SOB c EXERTION. TOLERATING ORALS, DENIES N/V UPON DISCHARGE. PT REPORTS BASELINE BACK PAIN & ACUTE FACIAL PAIN, TOLERABLE c ORAL MEDICATION. VOIDING, PASSING FLATUS c BMs. IVs REMOVED. PT ABLE TO IND AMBULATE. ALL PERSONAL BELONGINGS c PT. DISCHARGE INSTRUCTIONS GIVEN, PT VERBALIZES UNDERSTANDING, ALL QUESTIONS ANSWERED. D/C'd VIA WHEELCHAIR TO POV DRIVEN BY FAMILY.
--- NOTE | 2025-06-10 13:45 | NUR ---
PALLIATIVE CARE NOTE: RECIEVED UPDATE FROM PRIMARY RN, PT TO DC TODAY. NO NEEDS FROM PC AT THIS TIME.
== END 2025-06-10 11:40 | disposition home or self-care (01) | DRG 208 ==
LOC: ER 16:38 → ICUE 17:57
PROVIDERS: Emergency Medicine; Internal Medicine; Nurse Practitioner Acute Care; ADMIT Internal Medicine
PROC: 3E03329 Introduction of Other Anti-infective into Peripheral Vein, Percutaneous Approach (ICD-10-PCS; principal; 2025-06-07)
PROC: 5A1935Z Respiratory Ventilation, Less than 24 Consecutive Hours (ICD-10-PCS; 2025-06-07)
PROC: 0BH17EZ Insertion of Endotracheal Airway into Trachea, Via Natural or Artificial Opening (ICD-10-PCS; 2025-06-07)
DX: J96.01 Acute respiratory failure with hypoxia (principal); J44.1 Chronic obstructive pulmonary disease with (acute) exacerbation; R64 Cachexia; Z68.1 Body mass index [BMI] 19.9 or less, adult; J96.02 Acute respiratory failure with hypercapnia; I16.0 Hypertensive urgency; S02.2XXA Fracture of nasal bones, initial encounter for closed fracture; F17.210 Nicotine dependence, cigarettes, uncomplicated; Z79.2 Long term (current) use of antibiotics; Z79.52 Long term (current) use of systemic steroids; Z79.899 Other long term (current) drug therapy; Z91.013 Allergy to seafood; Z91.041 Radiographic dye allergy status; Z98.891 History of uterine scar from previous surgery; Z98.51 Tubal ligation status; Z86.19 Personal history of other infectious and parasitic diseases; Z87.11 Personal history of peptic ulcer disease; W01.198A Fall on same level from slipping, tripping and stumbling with subsequent striking against other object, initial encounter
CPT/HCPCS: 12011; 36415; 51702; 70450; 71045; 72125; 76705; 80048; 80053; 80069; 80320; 82803; 82947; 83605; 83735; 84100; 84484; 85025; 85027; 87637; 93005; 93010; 94002; 94003; 94640; 94664; 94761; 94762; 96374-59; 99285-25; A9270; J0456; J1650; J2060; J2405; J2470; J2704; J2919; J3010; J7030; J7050; J7060; J7512; L0160

== ENCOUNTER 2025-07-15 04:55 | Inpatient (IN) | payer OTHER ==
[~2025-07-15] VITALS: Ht 172.7 cm; Wt 49.9 kg
[2025-07-15] VITALS (10 sets, daily range): BP systolic 109–134; BP diastolic 54–71
[~2025-07-15 04:55] MED LIST changes: +ALBU2.5V5; +MULVITA PO; +OXYC5 PO; +PANT20 PO; +TIZA4 PO; +Voltaren100 GM
[2025-07-15] MEDS ORDERED: NS 1,000 ML IV ONE ×2 (05:09→05:38)
[2025-07-15 05:14] LABS: BASOPHILS ABSOLUTE AUTO 0.08 K/mm3 (0.00-0.23); BASOPHILS PERCENT AUTO 0 % (0-2); EOSINOPHILS ABSOLUTE AUTO 0.02 K/mm3 (0.00-0.68); EOSINOPHILS PERCENT AUTO 0 % (0-6); Hematocrit 41.5 % (33.0-51.0); Hemoglobin 12.8 g/dL (11.5-16.0); IMMATURE GRAN ABSOLUTE AUTO 0.27 K/mm3 (0.00-0.10); IMMATURE GRAN PERCENT AUTO 1 % (0-1); LYMPHOCYTES ABSOLUTE AUTO 7.82 K/mm3 (0.84-5.20); LYMPHOCYTES PERCENT AUTO 31 % (21-46); MONOCYTES ABSOLUTE AUTO 1.36 K/mm3 (0.16-1.47); MONOCYTES PERCENT AUTO 5 % (4-13); Mean Corpuscular HGB Conc 30.8 g/dL (31.5-36.5); Mean Corpuscular Volume 98 fL (80-100); NEUTROPHILS ABSOLUTE AUTO 15.85 K/mm3 (1.96-9.15); NEUTROPHILS PERCENT AUTO 62 % (41-73); NRBC ABSOLUTE 0.00 K/mm3 (0.00-0.02); NRBC Auto 0.0 /100 WBC (0.0-0.2); Platelet Count 297 K/mm3 (150-400); RDW Coefficient Variation 14.6 % (11.7-14.2); RDW Standard Deviation 52.5 fL (35.1-46.3)
[2025-07-15 05:41] LABS: Prothrombin Time Results 11.2 Sec (9.7-11.5)
[2025-07-15 05:49] LABS: Alanine Aminotransfer (ALT/SGP 161.0 U/L (12-78); Albumin, Blood 3.8 g/dL (3.4-5.0); Albumin/Globulin Ratio 1.1 (0.8-1.8); Anion Gap 10.0 mmol/L (3-11); Aspartate Aminotrans (AST/SGOT 63.0 U/L (12-37); Bilirubin, Total 0.4 mg/dL (0.1-1.0); Blood Urea Nitrogen 28.0 mg/dL (8-24); CO2, Blood 27.0 mmol/L (21-32); Calcium, Blood 9.1 mg/dL (8.5-10.1); Chloride, Blood 103.0 mmol/L (98-108); Creatinine, Blood 0.85 mg/dL (0.40-1.00); Globulin, Blood 3.5 g/dL (2.2-4.0); Glucose, Blood 275.0 mg/dL (70-99); Magnesium, Blood 2.6 mg/dL (1.6-2.4); Potassium, Blood 4.7 mmol/L (3.5-5.5); Sodium, Blood 135.0 mmol/L (136-145); Thyroid Stimulating Hormone 7.91 uIU/mL (0.360-4.800); Total Protein, Blood 7.3 g/dL (6.4-8.2)
[2025-07-15] MEDS ORDERED: Piperacillin/Tazobactam Sod 4.5 GM in NS 100 ML IV ONE (05:55)
[2025-07-15] MEDS ORDERED: Ipratropium/Albuterol SulF 2.5-0.5MG/3 ML Amp INH ONE (05:55)
[2025-07-15 06:36] LABS: Source, Urine Clean Catch
[2025-07-15 06:43] LABS: Bilirubin, Urine Neg (Neg); Glucose Qualitative, Urine Neg (Neg); Ketones, Urine Neg (Neg); Leukocyte Esterase, Urine Neg (Neg); Protein, Urine 3+ (Neg); Specific Gravity, Urine 1.020 (1.003-1.022); Urobilinogen, Urine NORM (Normal)
[2025-07-15 06:49] LABS: Color, Urine Yellow (P-Yellow); White Blood Cells, Urine 0-2 /hpf (0-5)
[2025-07-15] MEDS ORDERED: FLU VACC TS2025(65UP)/MF59C/PF 45 MCG/0.5 ML SYRINGE IM SCH (07:40)
[2025-07-15] MEDS ORDERED: Enoxaparin 40 MG/0.4 ML SYR SC SCH (09:00)
--- NOTE | 2025-07-15 09:02 | NUR ---
ASSUMED CARE PT ADMIT FROM ER AT 0902. INTUBATED 22/400/5/45%. AROUSABLE TO VOICE, NODS/SHAKES HEAD APPROPRIATELY, GESTURES WHEN PROMPTED. 2 PIV'S IN R ARM, PATENT AND INFUSING 50MCG/KG/MIN PROPOFOL AND 125MCG/HR FENTANYL. R FEMORAL CENTRAL LINE INFUSING 4 MCG/KG/MIN LEVOPHED. OOZING SOME BLOOD, HOWEVER IT HAS ALREADY BEGUN TO CLOT AND IS STILL PATENT. HR RANGES IN THE 60'S AND BP 90-100'S SYSTOLIC WITH MAP'S >65. AFEBRILE. JENSEN PATENT AND DRAINING TO GRAVITY. SEE ADMIT ASSESSMENT FOR FULL DETAILS.
[2025-07-15 09:57] LABS: pH Blood Venous 7.35 (7.34-7.37)
--- NOTE | 2025-07-15 10:07 | NUR ---
EXTUBATION RT AT BEDSIDE, SEDATION OFF. FOLLOWS COMMANDS, UTILIZES COMMUNICATION BOARD. EXTUBATED AT 1007 TO 3L NC. O2 SAT >90%.
[2025-07-15 15:31] LABS: U Amphetamine Screen Not Detected; U Barbiturate Screen Not Detected; U Benzodiazapine Screen Not Detected; U Buprenorphine Screen Not Detected; U Cannabinoids Screen Not Detected; U Cocaine Screen Not Detected; U Methadone Screen Not Detected; U Methamphetamine Screen Not Detected; U Opiates Screen Not Detected; U Oxycodone Screen Not Detected; U Phencyclidine Screen Not Detected
--- NOTE | 2025-07-15 17:36 | NUR ---
SHIFT SUMMARY PT EXTUBATED AT 1007, CURRENTLY ON RA c O2 SATURATION > 90%. ABLE TO FOLLOW COMMANDS, MAKES PURPOSEFUL MOVEMENTS, AND MAKE NEEDS KNOWN. AFEBRILE. REPORTS CHRONIC BACK PAIN, MEDICATED PER EMAR c GOOD BENEFIT. AMBULATES IN ROOM INDEPENDENTLY c SBA FOR CORD GUIDANCE. CONTINUOUS CARDIAC MONITORING IN PLACE SHOWS SR, BP STABLE. NO BM THIS SHIFT. TOLERATES PO INTAKE AND MEDS WELL. VOIDS INDEPENDENTLY IN BEDSIDE TOILET. CENTRAL LINE TO R FEM, 2X PIV'S TO R ARM SALINE LOCKED. WILL CONTINUE TO MONITOR AND REPORT TO ONCOMING RN.
[2025-07-15] MEDS ORDERED: Rocuronium Bromide 10 MG/ML 5ML Injection IV ONE (18:56)
[2025-07-15] MEDS ORDERED: Midazolam HCl 1MG / ML 2ML Vial IV ONE (18:56)
[2025-07-15] MEDS ORDERED: Phenylephrine HCl 40 MCG/ML-NS 10MLSYR (0.4MG/ML) IV ONE (18:56)
[2025-07-15] MEDS ORDERED: Etomidate 2MG / ML 10ML Vial IV ONE (18:56)
[2025-07-15] MEDS ORDERED: DEXTROMETHORPHAN/BENZOCAINE 1 EACH LOZENGE MT PRN (19:10)
[2025-07-15] MEDS ORDERED: Tiotropium Bromide 2.5 MCG/ACT MIST INHAL (10 ACT/4 GM) INH SCH (23:35)
[2025-07-15] MEDS ORDERED: Albuterol 2.5 MG/3 ML VIAL INH PRN (23:35)
[2025-07-16] VITALS (8 sets, daily range): BP systolic 100–137; BP diastolic 42–80
[2025-07-16 03:41] LABS: Hematocrit 32.7 % (33.0-51.0); Hemoglobin 10.7 g/dL (11.5-16.0); Mean Corpuscular HGB Conc 32.7 g/dL (31.5-36.5); NRBC ABSOLUTE 0.00 K/mm3 (0.00-0.02); NRBC Auto 0.0 /100 WBC (0.0-0.2); Platelet Count 189 K/mm3 (150-400); RDW Coefficient Variation 14.9 % (11.7-14.2); RDW Standard Deviation 50.6 fL (35.1-46.3)
[2025-07-16 03:43] LABS: Mean Corpuscular Volume 93 fL (80-100)
[2025-07-16 04:02] LABS: Anion Gap 8.0 mmol/L (3-11); Blood Urea Nitrogen 22.0 mg/dL (8-24); CO2, Blood 24.0 mmol/L (21-32); Calcium, Blood 8.0 mg/dL (8.5-10.1); Chloride, Blood 107.0 mmol/L (98-108); Creatinine, Blood 0.7 mg/dL (0.40-1.00); Glucose, Blood 185.0 mg/dL (70-99); Potassium, Blood 4.1 mmol/L (3.5-5.5); Sodium, Blood 135.0 mmol/L (136-145)
--- NOTE | 2025-07-16 05:52 | NUR ---
SHIFT SUMMARY NO ACUTE CHANGES/EVENTS DURING SHIFT. PT SLEPT INTERMITTENTLY. ROUSES EASILY TO STIMULI. UP TO BR INDEPENDENTLY. VOIDING WITHOUT DIFFICULTY. MEDICATED WITH ROXICODONE 5MG PO X 2 DOSES FOR C/O CHRONIC BACK PAIN AND FOR LEFT RIB PAIN. HEATING PAD APPLIED TO LEFT SIDE/RIBS. DENIES NAUSEA. TOLERATED MULTIPLE SNACKS DURING NOC. VSS. MONITOR SHOWS NSR WITH OCCASIONAL PVCs. RA SATS STABLE. RESPIRATIONS EVEN AND UNLABORED. WILL REPORT TO ONCOMING RN WHEN AVAILABLE.
--- NOTE | 2025-07-16 14:11 | NUR ---
1405 ARRIVED TO ROOM VIA WHEELCHAIR, ORIENTED TO ROOM PER CAN PT DENIES ANY NEEDS AT THIS TIME
--- NOTE | 2025-07-16 14:46 | NUR ---
ASSUMED CARE ASSUMED CARE AT APPROXIMATELY 0700 FROM HERMINIO. A&Ox4. HR RANGES 70-80S, BP 120-130'S, NSR W/ OCCASIONAL PVC'S. MAINTAINS >92% ON RA. AMBULATES INDEPENDENTLY TO/FROM BED/BATHROOM. PIV IN RFA AND R WRIST. C/O MODERATE CHRONIC BACK PAIN, SEE EMAR FOR MEDS GIVEN. SEE SHIFT ASSESSMENT FOR FULL DETAILS.
--- NOTE | 2025-07-16 17:19 | NUR ---
SHIFT SUMMARY: A&OX4. PLEASANT AND COOPERATIVE WITH CARE. PT IS INDEPENDENT IN ROOM AND IS UP AMBULATING FREQUENTLY. VSS SINCE TIME OF TRANSFER. TELE MONITORING IN PLACE. NO ACUTE EVENTS/CHANGES. DENIES ANY CHEST PAIN/PRESSURE. AWAITING ZIO PATCH PLACEMENT. REPORT TO BE GIVEN TO ONCOMING NURSE.
[2025-07-16] MEDS ORDERED: HYDHCL25 PO (22:59)
[2025-07-17 00:08] VITALS: BP 141/66
[2025-07-17 04:45] VITALS: BP 125/56
--- NOTE | 2025-07-17 04:55 | NUR ---
Patient was up when received. Denied any sob, chest pain, n/v, f/c, dizziness and headache. However, patient reported having 6/10 and requested PRN pain medication during the shift. Reported having an adequate sleep/appetite. Last Bm was yesterday. Complied with scheduled medications and no acute changes noted during the shift. Call murphy within the reach and frequent round was implemented.
[2025-07-17 07:16] VITALS: BP 120/59
[2025-07-17] MEDS ORDERED: OFLOXACIN5 M9 RIGHTEAR (10:36)
[2025-07-17] MEDS ORDERED: SPIRIVA RESPIMAT4 G3 INH (10:39)
[2025-07-17 11:16] VITALS: BP 136/64
[2025-07-17] MEDS ORDERED: HYDHCL25 PO (12:26)
[2025-07-17] MEDS ORDERED: ASPI81CH PO (12:26)
[2025-07-17] MEDS ORDERED: Acetaminophen325 M1 PO (12:27)
[2025-07-17] MEDS ORDERED: [UNRECOGNIZED DRUG - OTHER] TOP (12:28)
--- NOTE | 2025-07-17 17:07 | NUR ---
DISCHARGE NOTE- PT WAS GIVEN VERBAL AND WRITTEN DISCHARGE INSTRUCTIONS AND ACKNOWLEDGED UNDERSTANDING OF THEM. PT IV'S AND TELE DC'D AT THE TIME OF DISCHARGE. PT ESCORTED OUT VIA WC BY THIS RN. NO S&S OF DISTRESS AT THE TIME OF DISCHARGE.
== END 2025-07-17 13:55 | disposition home or self-care (01) | DRG 208 ==
LOC: ER 04:55 → ICUE 07:35 → MEDS 07-16 14:03 → ENPENDDIS 07-17 09:53 → MEDS 07-17 13:55
PROVIDERS: Internal Medicine Critical Care Medicine; Student in an Organized Health Care Education/Training Program; ADMIT Internal Medicine
PROC: 5A1935Z Respiratory Ventilation, Less than 24 Consecutive Hours (ICD-10-PCS; principal; 2025-07-15)
PROC: 0BH17EZ Insertion of Endotracheal Airway into Trachea, Via Natural or Artificial Opening (ICD-10-PCS; 2025-07-15)
PROC: 3E033XZ Introduction of Vasopressor into Peripheral Vein, Percutaneous Approach (ICD-10-PCS; 2025-07-15)
PROC: 0D9670Z Drainage of Stomach with Drainage Device, Via Natural or Artificial Opening (ICD-10-PCS; 2025-07-15)
PROC: 06HY33Z Insertion of Infusion Device into Lower Vein, Percutaneous Approach (ICD-10-PCS; 2025-07-15)
PROC: 3E03329 Introduction of Other Anti-infective into Peripheral Vein, Percutaneous Approach (ICD-10-PCS; 2025-07-15)
DX: J96.02 Acute respiratory failure with hypercapnia (principal); E87.21 Acute metabolic acidosis; J44.1 Chronic obstructive pulmonary disease with (acute) exacerbation; G45.9 Transient cerebral ischemic attack, unspecified; E87.1 Hypo-osmolality and hyponatremia; I95.9 Hypotension, unspecified; D72.829 Elevated white blood cell count, unspecified; F17.210 Nicotine dependence, cigarettes, uncomplicated; Z91.81 History of falling; Z88.8 Allergy status to other drugs, medicaments and biological substances; Z79.52 Long term (current) use of systemic steroids; Z86.19 Personal history of other infectious and parasitic diseases; Z99.81 Dependence on supplemental oxygen; Z79.891 Long term (current) use of opiate analgesic
CPT/HCPCS: 31500; 36415; 36556; 51702; 70450; 70486; 70551; 71045; 71260; 72125; 74177; 80048; 80053; 81001; 82803; 83605; 83690; 83735; 83880; 84439; 84443; 84484; 85025; 85027; 85610; 85730; 86850; 86900; 86901; 87070; 87205; 93005; 93010; 93246; 93306; 94002; 94640; 94664; 94760; 99291-25; A9270; C1751; J1650; J2250; J2371; J2543; J2704; J3010; J7030; J7050; Q9967

== ENCOUNTER 2025-07-24 13:55 | Observation (INO) | payer OTHER ==
[~2025-07-24] VITALS: Ht 172.7 cm; Wt 49.9 kg
[~2025-07-24 13:55] MED LIST changes: +Acetaminophen325 M1 PO; +HYDHCL25 PO; +OFLOXACIN5 M9 RIGHTEAR; +SPIRIVA RESPIMAT4 G3 INH; +[UNRECOGNIZED DRUG - OTHER] TOP
[2025-07-24] MEDS ORDERED: LORazepam 2 MG/ML 1ML Injection IV ONE ×2 (14:20→19:00)
[2025-07-24 14:27] LABS: BASOPHILS ABSOLUTE AUTO 0.03 K/mm3 (0.00-0.23); BASOPHILS PERCENT AUTO 0 % (0-2); EOSINOPHILS ABSOLUTE AUTO 0.07 K/mm3 (0.00-0.68); EOSINOPHILS PERCENT AUTO 1 % (0-6); Hematocrit 38.9 % (33.0-51.0); Hemoglobin 12.3 g/dL (11.5-16.0); IMMATURE GRAN ABSOLUTE AUTO 0.06 K/mm3 (0.00-0.10); IMMATURE GRAN PERCENT AUTO 1 % (0-1); LYMPHOCYTES ABSOLUTE AUTO 1.97 K/mm3 (0.84-5.20); LYMPHOCYTES PERCENT AUTO 17 % (21-46); MONOCYTES ABSOLUTE AUTO 0.71 K/mm3 (0.16-1.47); MONOCYTES PERCENT AUTO 6 % (4-13); Mean Corpuscular HGB Conc 31.6 g/dL (31.5-36.5); Mean Corpuscular Volume 96 fL (80-100); NEUTROPHILS ABSOLUTE AUTO 8.78 K/mm3 (1.96-9.15); NEUTROPHILS PERCENT AUTO 76 % (41-73); NRBC ABSOLUTE 0.00 K/mm3 (0.00-0.02); NRBC Auto 0.0 /100 WBC (0.0-0.2); Platelet Count 214 K/mm3 (150-400); RDW Coefficient Variation 16.0 % (11.7-14.2); RDW Standard Deviation 55.8 fL (35.1-46.3)
[2025-07-24 14:50] LABS: Alanine Aminotransfer (ALT/SGP 139.0 U/L (12-78); Albumin, Blood 3.5 g/dL (3.4-5.0); Albumin/Globulin Ratio 1.1 (0.8-1.8); Anion Gap 16.0 mmol/L (3-11); Aspartate Aminotrans (AST/SGOT 111.0 U/L (12-37); Bilirubin, Total 0.6 mg/dL (0.1-1.0); Blood Urea Nitrogen 23.0 mg/dL (8-24); CO2, Blood 25.0 mmol/L (21-32); Calcium, Blood 9.2 mg/dL (8.5-10.1); Chloride, Blood 103.0 mmol/L (98-108); Creatinine, Blood 0.81 mg/dL (0.40-1.00); Globulin, Blood 3.1 g/dL (2.2-4.0); Glucose, Blood 156.0 mg/dL (70-99); Potassium, Blood 4.7 mmol/L (3.5-5.5); Sodium, Blood 139.0 mmol/L (136-145); Total Protein, Blood 6.6 g/dL (6.4-8.2)
[2025-07-24] MEDS ORDERED: DiphenhydrAMINE HCl 50 MG/ML 1ML Vial IV ONE (16:05)
[2025-07-24] MEDS ORDERED: NS 1,000 ML IV SCH (18:55)
[2025-07-24] MEDS ORDERED: Ondansetron HCl 2 MG / ML 2ML Vial IV PRN (18:55)
[2025-07-24] MEDS ORDERED: FLU VACC TS2025(65UP)/MF59C/PF 45 MCG/0.5 ML SYRINGE IM SCH (18:55)
[2025-07-24] MEDS ORDERED: Albuterol 2.5 MG/3 ML VIAL INH PRN (19:00)
[2025-07-24] MEDS ORDERED: Ipratropium/Albuterol SulF 2.5-0.5MG/3 ML Amp INH SCH (19:00)
[2025-07-24 20:16] LABS: pH Blood Venous 7.49 (7.34-7.37)
--- NOTE | 2025-07-24 22:07 | NUR ---
21:52 - RECEIVED REPORT FROM GLEN AGUIRRE RN
[2025-07-24 22:15] LABS: U Amphetamine Screen Not Detected; U Barbiturate Screen Not Detected; U Benzodiazapine Screen DETECTED; U Buprenorphine Screen Not Detected; U Cannabinoids Screen Not Detected; U Cocaine Screen Not Detected; U Methadone Screen Not Detected; U Methamphetamine Screen Not Detected; U Opiates Screen Not Detected; U Oxycodone Screen Not Detected; U Phencyclidine Screen Not Detected
[2025-07-24 22:17] VITALS: BP 124/51
[2025-07-25 04:12] VITALS: BP 129/72
--- NOTE | 2025-07-25 05:16 | NUR ---
SHIFT SUMMARY: PT IS AOX4. SHE IS COOPERATIVE AND COMMUNICATES NEEDS APPROPRIATELY. PT DENIES ANY PAIN, PRESSURE, OR SOB AT THIS TIME. SLIGHT WHEEZES IN LUNG BASES NOTED ON AUSCULTATION. PT ON TELE, SR 71. SHE HAS DARK PURPLE BRUISING ON HER LEFT FOREARM. PT STATES THIS BRUISE WAS FROM WHEN SHE FELL PRIOR TO HOSPITAL ADMISSION. NO ACUTE EVENTS THIS SHIFT, AND THE ONLY COMPLAINT PT HAD WAS THAT HER ROOM WAS COLD, GAVE HER ADDITIONAL BLANKETS AND NON-SKID SOCKS. PT IS CONTINENT AND ABLE TO AMBULATE TO/FROM THE BR. 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 NO ACUTE EVENTS THIS SHIFT. PT IS ASLEEP, BED IN LOWEST POSITION, BEDSIDE TABLE AND CALL LIGHT WITHIN REACH.
[2025-07-25 06:28] LABS: Hematocrit 31.5 % (33.0-51.0); Hemoglobin 10.4 g/dL (11.5-16.0); Mean Corpuscular HGB Conc 33.0 g/dL (31.5-36.5); NRBC ABSOLUTE 0.00 K/mm3 (0.00-0.02); NRBC Auto 0.0 /100 WBC (0.0-0.2); Platelet Count 192 K/mm3 (150-400); RDW Coefficient Variation 16.0 % (11.7-14.2); RDW Standard Deviation 52.0 fL (35.1-46.3)
[2025-07-25 06:49] LABS: Alanine Aminotransfer (ALT/SGP 103.0 U/L (12-78); Albumin, Blood 2.9 g/dL (3.4-5.0); Albumin/Globulin Ratio 1.0 (0.8-1.8); Anion Gap 6.0 mmol/L (3-11); Aspartate Aminotrans (AST/SGOT 62.0 U/L (12-37); Bilirubin, Total 0.4 mg/dL (0.1-1.0); Blood Urea Nitrogen 21.0 mg/dL (8-24); CO2, Blood 29.0 mmol/L (21-32); Calcium, Blood 8.2 mg/dL (8.5-10.1); Chloride, Blood 107.0 mmol/L (98-108); Creatinine, Blood 0.73 mg/dL (0.40-1.00); Globulin, Blood 2.8 g/dL (2.2-4.0); Glucose, Blood 162.0 mg/dL (70-99); Magnesium, Blood 2.0 mg/dL (1.6-2.4); Potassium, Blood 3.9 mmol/L (3.5-5.5); Sodium, Blood 138.0 mmol/L (136-145); Total Protein, Blood 5.7 g/dL (6.4-8.2)
[2025-07-25 06:59] LABS: Calcium, Ionized (POC) 1.17 mmol/L (1.10-1.46); Chloride (POC) 99 mmol/L (98-108); Creatinine (POC) 1.0 mg/dL (0.6-1.0); Glucose (ISTAT POC) 150 mg/dL (70-99); Hematocrit (POC) 39.0 % (36.0-46.0); Hemoglobin (POC) 13.3 g/dL (12.0-16.0); Potassium (POC) 4.7 mmol/L (3.5-5.5); Sodium (POC) 140 mmol/L (135-148); Total CO2 (POC) 27 mmol/L (21-32)
[2025-07-25 07:04] LABS: Mean Corpuscular Volume 91 fL (80-100)
[2025-07-25 08:05] VITALS: BP 124/61
[2025-07-25] MEDS ORDERED: Enoxaparin 40 MG/0.4 ML SYR SC SCH (09:00)
[2025-07-25 12:13] VITALS: BP 125/58
[2025-07-25 15:53] VITALS: BP 137/51
[2025-07-25 19:20] VITALS: BP 115/53
--- NOTE | 2025-07-25 19:23 | NUR ---
NO ACUTE CHANGES THIS SHIFT. PT IS IMPULSIVE, SBA TO BSC FOR URGENCY. PLAN FOR D/C TOMORROW. NO SYNCOPAL EPISODES
[2025-07-26 00:54] VITALS: BP 116/53
[2025-07-26 04:32] VITALS: BP 139/69
--- NOTE | 2025-07-26 05:14 | NUR ---
SHIFT SUMMARY PATIENT IS ALERT AND ORIENTED. PATIENT HAS HAD NO ACUTE EVENTS THIS SHIFT. VITAL SIGNS REVIEWED. PATIENT HAS NOT BEEN IMPLUSIVE THIS SHIFT. PATIENT HAS HAD NO SYNCOPAL EPISODES THIS SHIFT. BED IN LOCKED AND LOWEST POSITION. NO EVENTS ON TELE. BED ALARM IS ON.
[2025-07-26 07:40] VITALS: BP 143/64
[2025-07-26] MEDS ORDERED: AZIT250 PO (11:18)
[2025-07-26] MEDS ORDERED: GUAI600T33 PO (11:19)
[2025-07-26] MEDS ORDERED: RAYOS5 M1 PO (11:22)
[2025-07-26 11:42] VITALS: BP 130/60
--- NOTE | 2025-07-26 12:34 | NUR ---
SHIFT / DISCHARGE SUMMARY: PATIENT DISCHARGED AND THIS NURSE DISCUSSED EDUCATION AND NEW MEDICATIONS. PATIENT VERBALIZED UNDERSTANDING. IV REMOVED AND TELE SENT BACK TO PCU. BELONGINGS PROVIDED BACK TO PATIENT. UPON DISCHARGE PATIENT WAS WHEELED OUT IN WHEELCHAIR.
== END 2025-07-26 12:10 | disposition home or self-care (01) ==
LOC: ER 13:55 → ERHOLD 13:56 → MEDS 13:56 → ENPENDDIS 07-26 10:48 → MEDS 07-26 12:10
PROVIDERS: Emergency Medicine; Nurse Practitioner Acute Care; ADMIT Internal Medicine
DX: R55 Syncope and collapse (principal); J96.21 Acute and chronic respiratory failure with hypoxia; J44.1 Chronic obstructive pulmonary disease with (acute) exacerbation; T17.590A Other foreign object in bronchus causing asphyxiation, initial encounter; R79.89 Other specified abnormal findings of blood chemistry; R74.01 Elevation of levels of liver transaminase levels; F17.210 Nicotine dependence, cigarettes, uncomplicated; M50.30 Other cervical disc degeneration, unspecified cervical region; M47.812 Spondylosis without myelopathy or radiculopathy, cervical region; M43.12 Spondylolisthesis, cervical region; Z86.19 Personal history of other infectious and parasitic diseases; Z79.82 Long term (current) use of aspirin; Z79.899 Other long term (current) drug therapy; Z91.013 Allergy to seafood; Z99.81 Dependence on supplemental oxygen; W44.F9XA Other object of natural or organic material, entering into or through a natural orifice, initial encounter
CPT/HCPCS: 36415; 70450; 71045; 71260; 72125; 80047; 80053; 82803; 83735; 84484; 85014; 85025; 85027; 85379; 93005; 93010; 94640; 94664; 94760; 96372; 96374; 96375; 96376; 99285-25; A6590; A9270; G0378; J1200; J1650; J2060; J7030; J7512; Q0177; Q9967